=== PATIENT | male | born 1965 | race Caucasian/White ===

== ENCOUNTER 2016-11-05 19:37 | Emergency (ER) | payer OTHER ==
[~2016-11-05] VITALS: Ht 177.8 cm; Wt 103.7 kg
[2016-11-05] MEDS ORDERED: ELOCON 0.1% CRE15 GM TP (21:55)
[2016-11-05 22:30] VITALS: BP 110/67
== END 2016-11-05 22:30 | disposition home or self-care (01) ==
LOC: EME 19:37 → EXP 19:37
DX: M25.461 Effusion, right knee (principal); M25.561 Pain in right knee; M79.89 Other specified soft tissue disorders
CPT/HCPCS: 73564; 93971; 99281; 99284